=== PATIENT | male | born 1950 | race Caucasian/White ===

== ENCOUNTER 2017-04-26 11:07 | Inpatient (IN) | payer BC, OTHER ==
[2017-04-26 11:31] LABS: Urine Bilirubin 1 mg/dl (NEGATIVE); Urine Blood Negative /ul (NEGATIVE); Urine Ketone Negative (NEGATIVE); Urine Nitrite Negative (NEGATIVE); Urine Protein Negative (NEGATIVE); Urine Specific Gravity 1.025 SP.GR. (1.005-1.030); Urine Urobilinogen Normal (NORMAL)
--- NOTE | 2017-04-26 11:31 | ERNOTE ---
Abdominal HPI - Narrative Date of Service: 04/26/17 - General Chief Complaint: Abdominal Pain Time Seen by Provider: 04/26/17 11:23 Source: patient Exam Limitations: no limitations - Immun/Allergies/Home Medications Immunizatons: IMMUNIZATION HX Immunizations Up to Date Yes History of Influenza Vaccine Yes Hx Pneumococcal Vaccination Yes Allergies/Adverse Reactions: Allergies No Known Allergies Allergy (Verified 04/26/17 11:20) Home Medications: HOME MEDICATIONS Amlodipine Besylate 10 mg PO DAILY 07/13/13 [Last Taken Unknown] Hydrochlorothiazide 12.5 mg PO DAILY 07/13/13 [Last Taken Unknown] Simvastatin [Zocor] 20 mg PO HS 07/13/13 [Last Taken Unknown] hydrALAZINE HCL [Apresoline] 10 mg PO TID 07/13/13 [Last Taken Unknown] Metoprolol Succinate 25 mg PO DAILY 04/26/17 [Last Taken Unknown] - History of Present Illness Narrative: Patient presents to the ED with diffuse abdominal pain for 4 days. This has been gradually worsening. Had diarrhea initially, now resoved. nausea, hasn't been eating. Pain has gradually been worsening. [place] feverish today. Never had anything like thi sbefore. has not seen anyone else for this. Right now he doesn't want anything for pain. No CP or SOB. Pain does not locaize. Timing: constant, getting worse Quality: moderate Activities at Onset: none Modifying Factors - (Improves): Present: other - nothing Modifying Factors - (Worsens): Present: movement Associated Symptoms: Present: nausea, loss of appetite. Absent: headache, diarrhea-gross blood, vomiting, shortness of breath Prior Abdominal Problems: Absent: similar symptoms Prior Treatment: Absent: recently seen Review of Systems - Review of Systems Constitutional: Absent: fever Respiratory: Absent: shortness of breath Cardiology: Absent: chest pain Gastrointestinal/Abdominal: Present: See HPI Genitourinary: Absent: dysuria Skin: Absent: rash Neurological: Absent: weakness All Other Systems: All systems neg except as marked - Patient's Past Medical History Patient History - Medical: No pertinent hx Patient History - Cardiac/Respiratory: Hypertension, Hyperlipidemia Patient History - Cancer: Prostate Patient History - Surgical Procedures: Other Patient History - Other: None - Social History Living Situations: home Psych History: No pertinent hx Smoking Status: Never smoker Alcohol Use: none Drug Use: none - Immunizations Immunizations Up to Date: Yes Hx Pneumococcal Vaccination: Yes History of Influenza Vaccine: Yes Physical Exam - Physical Exam General Appearance: Present: alert, no apparent distress Head Exam: Present: normal inspection, no evidence of injury Eye Exam: Normal inspection: bilateral, PERRL: bilateral Ears, Nose, Throat: Present: normal ENT inspection Neck: Present: normal inspection Respiratory: Present: no respiratory distress, normal breath sounds, no accessory muscle use, lungs clear Cardiovascular/Chest: Present: regular rate, rhythm, normal peripheral pulses Gastrointestinal/Abdominal: Present: soft, tenderness, distended, other - Milf hypertympany. No masses. Diffuse tenderness. Absent: guarding, rebound Back Exam: Absent: CVA tenderness (R), CVA tenderness (L) Extremity Exam: Present: normal inspection Neurological Exam: Present: alert, normal mood/affect, no motor/sensory deficits Skin Exam: Present: normal color, warm/dry ED Progress - Results and Orders Patient's Lab Results:: I have reviewed the patient's lab results. - Vital Signs Patient's Vital Signs:: I have reviewed the patient's vital signs. Vital Signs: Vital Signs 04/26/17 04/26/17 11:11 11:23 Temperature 36.7 C 36.7 C Pulse Rate 71 71 Respiratory 16 16 Rate Blood Pressure 164/81 164/81 O2 Sat by Pulse 96 96 Oximetry - X-Ray X-Ray #1 X-Ray: abdomen Interpretation: Interp. by me X-ray Comments: I reviewed official radiology report - CT/Ultrasound CT/Ultrasound Narrative: I reviewed official radiology report - Progress/Reassessment Chief Complaint: Abdominal Pain Progress Note-Subjective: 04/26/17 17:00 NG placed. Pt felt improved with this. I discussed case with Dr Rubio who will consult, then Dr Kumari who will admit. Pt stable for transfer to floor. Pt agreeable. Departure Clinical Impression: Abdominal pain, SBO (small bowel obstruction) - Departure Disposition: [facility] Condition: Fair
[2017-04-26 11:39] LABS: Urine Appearance Clear; Urine Bacteria None Seen; Urine Color Yellow; Urine RBC None Seen /hpf (0-5); Urine WBC None Seen /hpf (0-5)
[2017-04-26 11:41] LABS: Hematocrit 47.8 % (42.0-52.0); Hemoglobin 16.7 gm/dL (13.5-18.0); Mean Cell Volume 85.7 fl (78-100); Mean Corpuscular Hemoglobin 29.9 pg (27-31); Mean Corpuscular Hgb Conc 34.9 g/dl (32-36); Mean Platelet Volume 10.1 fl (6.0-9.5); Neutrophil # 13.3 K/mm3 (1.3-6.0); Neutrophil % 81.1 % (42-75.0); Platelet Count 295 K/mm3 (150-450); Red Blood Count 5.58 M/mm3 (4.7-6.0); Red Cell Distribution Width 13.8 % (11.5-14.0); White Blood Count 16.4 K/mm3 (4.0-10.5)
[2017-04-26 11:53] LABS: Albumin * 3.8 gm/dl (3.4-5.0); Anion Gap 13.7 mmol/L (6.8-13.8); BUN/Creatinine Ratio 13.3 (9.0-21.6); Ca. Corrected For Albumin 9.9 mg/dL (8.4-10.2); Calcium * 10.1 mg/dL (7.9-10.9); Carbon Dioxide 30.8 mmol/L (24-32.6); Potassium 3.5 mmol/L (3.4-4.6); Total Protein 7.7 gm/dL (6.2-8.2)
[2017-04-26] MEDS ORDERED: DIATRIZOATE MEGLUMINE, SODIUM 30 ML BTL PO ONE (12:01)
[2017-04-26] MEDS ORDERED: DIATRIZOATE MEGLUMINE, SODIUM 30 ML BTL ONE (12:33)
[2017-04-26] MEDS ORDERED: MORPHINE SULFATE 2 MG/ML DISP.SYRIN ONE ×2 (14:21→16:39)
[2017-04-26] MEDS ORDERED: ONDANSETRON HCL/PF 2 MG/ML VIAL ONE (14:21)
[2017-04-26] MEDS ORDERED: ONDANSETRON HCL/PF 2 MG/ML VIAL IV ONE (14:23)
[2017-04-26] MEDS: MORPHINE SULFATE 2 MG/ML DISP.SYRIN IV PRN ×2 (14:43→16:42)
--- NOTE | 2017-04-26 22:19 | HP ---
Chief Complaint - Chief Complaint Date of Service: 04/26/17 Time of Service: 21:47 Chief Complaint: " Stomach Cramps, Diarrhea". Source of HPI- Pt; reliable, ERP report/notes. History of Present Illness: Mr. Adame is a 66-yr-old WM pt with a PMH of: HTN, Osteoathritis & Prostate cancer. Pt states that on Sunday (04/23), he developed severe abdominal cramping and diarrhea. He thought that he was coming down with a "stomach flu." He took OTC Immodium which improved his diarrhea but the abdominal pain persisted. Today, he went to work but his abdominal pain felt worse, full of gas and therefore chose to come to the [facility] ER. He states that he has had poor appetite. The last good meal was yesterday during breakfast and he felt the food just 'stuck in the stomach.' He denies fevers and vomiting. He has had chills and nausea. He had a normal BM this morning. He had Laporascopic prostactectomy in 2009. He denies other abdominal surgeries. He had Colonoscopy 5 yrs ago and states the has polyps were removed and he is due for another screening this yr. Work-up at the ED involved CT abdomen which showed a likely high grade Small Bowel Obstruction. Laboratory studies showed WBC of 16, 000 with a LT shift. The Surgeon was consulted on pt's case by the ERP and he evaluated the pt. He will be admitted inpatient due to the risk of SBO progression to strangulation and will need close monitoring during the non- operative management. - Patient's Past Medical History Patient History - Medical: No pertinent hx, Osteoarthritis Patient History - Cardiac/Respiratory: Hypertension, Hyperlipidemia Patient History - Cancer: Prostate Patient History - Surgical Procedures: Other - Prostatectomy.2009 Patient History - Other: None - Family History Mother Family History - Medical: , Diabetes Type 2 Family History - Cardiac/Respiratory: Hypertension Family History - Cancer: Lung Father Family History - Cardiac/Respiratory: Hypertension Family History - Cancer: Lung, Throat - Social History Living Situations: spouse Psych History: No pertinent hx Smoking Status: Never smoker Have you smoked in the past 12 months: No Alcohol Use: none Drug Use: none - Immunizations Immunizations Up to Date: Yes Hx Pneumococcal Vaccination: Yes History of Influenza Vaccine: Yes Review Of Systems (GEN) - Review of Systems Generalized/Overall Review: Present: Malaise. Absent: Weakness, Chills, Fever EENTM: Absent: Eye Pain, Blurred Vision Respiratory: Absent: Cough, Shortness of Breath, Orthopnea Cardiac: Absent: Chest Pain, Edema, Palpitations Abdominal: Present: Nausea, Constipation Genitourinary: Absent: Burning, Itching, Urgency, Frequency Musculoskeletal: Absent: Joint Pain, Back Pain, Joint Swelling Neurological: Absent: Headache, Anxiety, Depressed, Emotional Problems, Weakness Skin: Absent: Dryness, Lesions, Lumps Endocrine: Absent: Intolerance to Cold, Increased Hunger, Flushing, Increased Thirst Misc: All systems neg except as marked Immunizations: IMMUNIZATION HX Immunizations Up to Date Yes History of Influenza Vaccine Yes Hx Pneumococcal Vaccination Yes Allergies/Adverse Reactions: Allergies Allergy/AdvReac Type Severity Reaction Status Date / Time No Known Allergies Allergy Verified 04/26/17 17:40 Home Medications: HOME MEDICATIONS Amlodipine Besylate 10 mg PO DAILY 07/13/13 [Last Taken Unknown] Hydrochlorothiazide 25 mg PO DAILY 07/13/13 [Last Taken Unknown] Simvastatin [Zocor] 40 mg PO HS 07/13/13 [Last Taken Unknown] hydrALAZINE HCL [Apresoline] 25 mg PO TID 07/13/13 [Last Taken Unknown] Metoprolol Succinate 100 mg PO DAILY 04/26/17 [Last Taken Unknown] Exam - Exam Vital Signs: Vital Signs - Last Taken Temp 36.6 C 04/26/17 17:06 Pulse 66 04/26/17 17:06 Resp 20 04/26/17 17:06 BP 187/87 04/26/17 17:06 Pulse Ox 95 04/26/17 17:06 Constitutional: Present: Alert, Oriented x3, Cooperative, No distress ENT Exam: Present: normal ENT inspection Eye Exam: bilateral eye: normal inspection, PERRL Neck: Present: non-tender, full range of motion, supple Back Exam: Present: normal inspection, no CVA tenderness Breasts: Present: Exam deferred Respiratory: Present: normal breath sounds, No rales, No wheezing Cardiovascular/Chest: Present: normal peripheral pulses, regular rate, rhythm, no chest tenderness, no edema Abdomen: Present: no rebound tenderness, tender - all over, firm, distended /Rectal: Present: Exam deferred Extremity: Present: normal range of motion, non-tender, normal inspection, no pedal edema Skin Exam: Present: warm/dry, no cyanosis Lymphatic: Present: no adenopathy Neurologic: Present: alert, normal mood/affect, oriented x 3 Appearance: Present: appropriate appearance, appropriate insight Eye contact: Present: cooperative, good eye contact, normal speech Thoughts: Present: normal thought pattern, no apparent hallucination Diagnostic Studies: Abnormal Lab Results 04/26/17 Range/Units Unknown Urine Bilirubin 1 H (NEGATIVE) mg/dl Laboratory Results WBC 16.4 K/mm3 (4.0-10.5) H 04/26/17 11:39 RBC 5.58 M/mm3 (4.7-6.0) 04/26/17 11:39 Hgb 16.7 gm/dL (13.5-18.0) 04/26/17 11:39 Hct 47.8 % (42.0-52.0) 04/26/17 11:39 MCV 85.7 fl (78-100) 04/26/17 11:39 MCH 29.9 pg (27-31) 04/26/17 11:39 MCHC 34.9 g/dl (32-36) 04/26/17 11:39 RDW 13.8 % (11.5-14.0) 04/26/17 11:39 Plt Count 295 K/mm3 (150-450) 04/26/17 11:39 MPV 10.1 fl (6.0-9.5) H 04/26/17 11:39 Immature Gran % (Auto) 0.60 % (0.001-0.429) H 04/26/17 11:39 Immature Gran # (Auto) 0.09 K/mm3 (0.000-0.0310) H 04/26/17 11:39 Neutrophils % 81.1 % (42-75.0) H 04/26/17 11:39 Lymphocytes % 10.9 % (20-51) L 04/26/17 11:39 Monocytes % 5.7 % (0.0-9) 04/26/17 11:39 Eosinophils % 1.3 % (0.0-3.0) 04/26/17 11:39 Basophils % 0.4 % (0.0-1.0) 04/26/17 11:39 Nucleated RBC % 0.0 k/mm3 (0-1) 04/26/17 11:39 Neutrophils # 13.3 K/mm3 (1.3-6.0) H 04/26/17 11:39 Lymphocytes # 1.8 k/mm3 (1.5-3.5) 04/26/17 11:39 Monocytes # 0.9 k/mm3 (0.0-1.0) 04/26/17 11:39 Eosinophils # 0.2 k/mm3 (0.0-0.7) 04/26/17 11:39 Absolute Basophils 0.1 k/mm3 (0.0-0.1) 04/26/17 11:39 Sodium 137 mmol/L (132-142) 04/26/17 11:39 Plasma Sodium 138 mmol/L (130-142) 04/26/17 11:39 Potassium 3.5 mmol/L (3.4-4.6) 04/26/17 11:39 Chloride 96 mmol/L (97-106) L 04/26/17 11:39 Carbon Dioxide 30.8 mmol/L (24-32.6) 04/26/17 11:39 Anion Gap 13.7 mmol/L (6.8-13.8) 04/26/17 11:39 BUN 16 mg/dL (6-23) 04/26/17 11:39 Creatinine 1.20 mg/dL (0.4-1.4) 04/26/17 11:39 Est GFR (Non-Af Amer) 65 mL/min (60-130) 04/26/17 11:39 BUN/Creatinine Ratio 13.3 (9.0-21.6) 04/26/17 11:39 Random Glucose 148 mg/dL (70-110) H 04/26/17 11:39 Calcium 10.1 mg/dL (7.9-10.9) 04/26/17 11:39 Calcium Adj for Albumin 9.9 mg/dL (8.4-10.2) 04/26/17 11:39 Total Bilirubin 1.0 mg/dL (0.0-1.1) 04/26/17 11:39 AST 23 U/L (0-48) 04/26/17 11:39 ALT 38 U/L (19-67) 04/26/17 11:39 Alkaline Phosphatase 66 U/L (50-170) 04/26/17 11:39 Total Protein 7.7 gm/dL (6.2-8.2) 04/26/17 11:39 Albumin 3.8 gm/dl (3.4-5.0) 04/26/17 11:39 Amylase 30 U/L (25-115) 04/26/17 11:39 Lipase 170 U/L (73-393) 04/26/17 11:39 Urine Color Yellow 04/26/17 Unknown Urine Appearance Clear 04/26/17 Unknown Urine pH 6.0 pH (5.0-7.0) 04/26/17 Unknown Ur Specific [place] 1.025 SP.GR. (1.005-1.030) 04/26/17 Unknown Urine Protein Negative mg/dL (NEGATIVE) 04/26/17 Unknown Urine Glucose (UA) Negative mg/dL (NEGATIVE) 04/26/17 Unknown Urine Ketones Negative mg/dL (NEGATIVE) 04/26/17 Unknown Urine Blood Negative /ul (NEGATIVE) 04/26/17 Unknown Urine Nitrate Negative (NEGATIVE) 04/26/17 Unknown Urine Bilirubin 1 mg/dl (NEGATIVE) H 04/26/17 Unknown Urine Ictotest Negative (NEGATIVE) 04/26/17 Unknown Urine Urobilinogen Normal EU/dl (NORMAL) 04/26/17 Unknown Ur Leukocyte Esterase Negative /ul (NEGATIVE) 04/26/17 Unknown Urine RBC None seen /hpf (0-5) 04/26/17 Unknown Urine WBC None seen /hpf (0-5) 04/26/17 Unknown Ur Epithelial Cells 0-5 /hpf (0-5) 04/26/17 Unknown Urine Bacteria None seen (NONE) 04/26/17 Unknown Urine Culture Comments No culture indicated 04/26/17 Unknown Assessment/Plan - Assessment/Plan (1) SBO (small bowel obstruction) Assessment: Pt is a 66 yr male with SBO who presented with abdominal pain, abdominal distention, nausea and minimal passage of stool. He has had decreased intake of food and no appetite. On exam, he has generalized tenderness but states its better than this morning. He has no fevers, tachycardia, tachypnea, hypotension and severe rebound tenderness. He has been seen and evaluated by Surgery. The management will be non-operative for now with : NG to LIS, NPO, IVF hydration, provide Antiemetics and Analgesics. He will have repeat Abdominal X-ray in am to evaluate for resolution. Will monitor for signs of clinical deterioration- fevers, Leukocytosis, continuous abd pain & tachycardia. CBC & BMP in am. Problem: Acute (2) Leukocytosis Assessment: CXR did not have any acute findings. No infection on UA. Problem: Acute (3) HTN (hypertension) Assessment: Stable- Continue Amlodipine, hctz, metoprolol, Apresoline. Problem: Chronic Qualifiers: Hypertension type: essential hypertension Qualified Code(s): I10 - Essential (primary) hypertension
[2017-04-26] MEDS ORDERED: HYDROmorphone HCL 1 MG/ML DISP.SYRIN IV PRN (22:21)
[2017-04-26] MEDS ORDERED: ONDANSETRON HCL/PF 2 MG/ML VIAL IV PRN (22:21)
[2017-04-26] MEDS: POTASSIUM CHLORIDE 20 MEQ in DEXTROSE 5%-0.5 NORMAL SALINE 990 ML IV SCH (23:12)
--- NOTE | 2017-04-27 05:56 | PN ---
Subjective - Date and Time Seen Date: 04/27/17 Time: 05:51 Subjective Narrative: Pt seen this am. He reports having abdominal cramping in the night and Zofran provided relief. No N/V. Noted to have tenderness on RUQ. Had NG output of about 1100ml. No other acute event overnight. Objective - Vitals Vitals: Last Vital Signs Temp 36.9 C 04/27/17 02:31 Pulse 73 04/27/17 02:31 Resp 20 04/27/17 02:31 BP 145/75 04/27/17 02:31 Pulse Ox 95 04/27/17 02:31 - Abnormal Lab Findings Abnormal Lab Findings: Abnormal Lab Results 04/26/17 Range/Units Unknown Urine Bilirubin 1 H (NEGATIVE) mg/dl - Exam Constitutional: Present: Alert, Oriented x3, Cooperative, No distress ENT Exam: Present: normal ENT inspection Neck: Present: non-tender, full range of motion Breasts: Present: Exam deferred Respiratory: Present: chest non-tender, No rales, No wheezing Cardiovascular/Chest: Present: normal peripheral pulses, regular rate, rhythm Abdomen: Present: soft, tender - RLQ, distended /Rectal: Present: Exam deferred Extremity: Present: normal range of motion, non-tender, normal inspection, no pedal edema Skin Exam: Present: warm/dry, no cyanosis Lymphatic: Present: no adenopathy Neurologic: Present: no motor/sensory deficits, alert, normal mood/affect Appearance: Present: appropriate appearance, appropriate insight Eye contact: Present: cooperative, good eye contact, normal speech Thoughts: Present: normal thought pattern, no apparent hallucination Assessment/Plan - Problems/Diagnosis (1) SBO (small bowel obstruction) Problem: Acute Narrative: Pt is a 66 yr male with SBO who presented with abdominal pain, abdominal distention, nausea and minimal passage of stool. He has had decreased intake of food and no appetite. On exam, he has generalized tenderness but states its better than this morning. He has no fevers, tachycardia, tachypnea, hypotension and severe rebound tenderness. He has been seen and evaluated by Surgery. The management will be non-operative for now with : NG to LIS, NPO, IVF hydration, provide Antiemetics and Analgesics. He will have repeat Abdominal X-ray in am to evaluate for resolution. Will monitor for signs of clinical deterioration- fevers, Leukocytosis, continuous abd pain & tachycardia. CBC & BMP in am. 04/27- Abdomen still distended and noted to have tenderness on RUQ. NG output- 1100. Flat/upright X-ray pending. (2) Leukocytosis Problem: Acute Narrative: CXR did not have any acute findings. No infection on UA. (3) HTN (hypertension) Problem: Chronic Qualifiers: Hypertension type: essential hypertension Qualified Code(s): I10 - Essential (primary) hypertension Narrative: Stable- Hold Amlodipine, hctz, metoprolol, Apresoline while NPO. Will monitor bp and give IV route if elevated.
[2017-04-27 06:16] LABS: Hemoglobin 15.5 gm/dL (13.5-18.0); Mean Cell Volume 86.7 fl (78-100); Mean Corpuscular Hemoglobin 29.9 pg (27-31); Mean Corpuscular Hgb Conc 34.4 g/dl (32-36); Mean Platelet Volume 10.5 fl (6.0-9.5); Neutrophil # 7.3 K/mm3 (1.3-6.0); Neutrophil % 75.3 % (42-75.0); Platelet Count 262 K/mm3 (150-450); Red Blood Count 5.19 M/mm3 (4.7-6.0); Red Cell Distribution Width 13.7 % (11.5-14.0); White Blood Count 9.7 K/mm3 (4.0-10.5)
[2017-04-27 06:22] LABS: Anion Gap 7.7 mmol/L (6.8-13.8); BUN/Creatinine Ratio 15.1 (9.0-21.6); Calcium * 9.7 mg/dL (7.9-10.9); Carbon Dioxide 35.7 mmol/L (24-32.6); Estimated Creat Clear 54.6; Potassium 3.4 mmol/L (3.4-4.6)
[2017-04-27] MEDS ORDERED: HYDROmorphone HCL 2 MG/ML VIAL IV PRN (06:32)
[2017-04-27] MEDS ORDERED: hydrALAZINE HCL 10 MG TABLET PO SCH (09:00)
[2017-04-27] MEDS ORDERED: amLODIPine BESYLATE 10 MG TABLET PO SCH (09:00)
[2017-04-27] MEDS ORDERED: HYDROCHLOROTHIAZIDE 25 MG TABLET PO SCH (09:00)
[2017-04-27] MEDS ORDERED: hydrALAZINE HCL 25 MG TABLET PO SCH (09:00)
[2017-04-27] MEDS ORDERED: METOPROLOL SUCCINATE 100 MG TABLET.SA PO SCH (09:00)
--- NOTE | 2017-04-27 09:09 | PN ---
Progess Note - Interim Narrative: 04/27/17 09:06 I saw and examined this patient on 04/27/2017. I agree with the narrative and plan of SIMBA Rosales. Continue with NPO, IVF and NGT for SBO. Dr. pittman is on the case. Patient is medically cleared for surgery in case he does not open up pending EKG. 04/27/17 11:18 ADDENDUM: EKG shows NSR with probable right IV conduction delay.
[2017-04-27] MEDS ORDERED: MORPHINE SULFATE 4 MG/ML SYRG IV PRN (09:17)
[2017-04-27] MEDS: POTASSIUM CHLORIDE 20 MEQ in DEXTROSE 5%-0.5 NORMAL SALINE 990 ML IV SCH ×2 (09:29→15:05)
[2017-04-27] MEDS ORDERED: PROMETHAZINE HCL 12.5 MG in DEXTROSE 5 % IN WATER 50 ML IV PRN ×2 (14:21)
[2017-04-27] MEDS ORDERED: ONDANSETRON HCL/PF 2 MG/ML VIAL IV PRN (14:21)
[2017-04-27] MEDS ORDERED: KETOROLAC TROMETHAMINE 15 MG/ML VIAL IV PRN (14:21)
[2017-04-27] MEDS ORDERED: diphenhydrAMINE HCL 50 MG/ML VIAL IV PRN (14:21)
[2017-04-27] MEDS ORDERED: NALOXONE HCL 1 MG/1 ML SYRG IV PRN (14:21)
[2017-04-27] MEDS ORDERED: MORPHINE SULFATE 2 MG/ML DISP.SYRIN IV PRN (14:24)
--- NOTE | 2017-04-27 14:52 | PN ---
Subjective - Date and Time Seen Date: 04/27/17 Time: 14:43 Subjective Narrative: Patient has been treated for SBO with NG suctiona dn IVF's. He is more comfortable and abdomen less tense, however there has been a large amount of NG output, which is still green in nature. He has contrast in the colon however the small bowel is still dilated and he has only passed a minimal amount of flattus. Objective - Review of Systems Generalized/Overall Review: Reports: Fatigue. Denies: Chills, Fever EENTM: Reports: Other - NG uncomfortable, mouth dry Respiratory: Reports: No Symptoms Reported Cardiac: Reports: No Symptoms Reported Abdominal: Reports: Other - less distention but still some, tender upper abdomen Genitourinary Symptoms: Reports: No Symptoms Reported, Other - voided small amount Musculoskeletal Complaints: Reports: No Symptoms Reported Neurological: Reports: No Symptoms Reported Skin: Reports: No Symptoms Reported Misc: All systems neg except as marked - Vitals Vitals: Last Vital Signs Temp 36.6 C 04/27/17 14:19 Pulse 90 04/27/17 14:19 Resp 16 04/27/17 14:19 BP 160/75 04/27/17 14:19 Pulse Ox 94 04/27/17 14:19 - Abnormal Lab Findings Abnormal Lab Findings: Abnormal Lab Results 04/27/17 04/27/17 Range/Units 06:11 06:11 MPV 10.5 H (6.0-9.5) fl Neutrophils % 75.3 H (42-75.0) % Lymphocytes % 14.0 L (20-51) % Neutrophils # 7.3 H (1.3-6.0) K/mm3 Lymphocytes # 1.4 L (1.5-3.5) k/mm3 Carbon Dioxide 35.7 H (24-32.6) mmol/L Random Glucose 178 H (70-110) mg/dL - EKG/Xray Findings EKG: NSR XRAY: abdomen Interpretation: Reviewed by me - Exam Constitutional: Present: Alert, Oriented x3, Cooperative, Well nourished, Mild distress ENT Exam: Present: normal ENT inspection, other - NG Neck: Present: normal inspection Respiratory: Present: lungs clear, normal breath sounds Cardiovascular/Chest: Present: regular rate, rhythm Abdomen: Present: other - distended, assymetrically, no BS 2 minutes. tender epigastrium but no percussion or rebound tenderness or guarding. No hernias /Rectal: Present: Exam deferred Extremity: Present: normal range of motion, no pedal edema, no calf tenderness Skin Exam: Present: normal color, warm/dry Neurologic: Present: yarn examiner II-XII nml as tested, normal cerebellar test, no motor/ sensory deficits Appearance: Present: appropriate appearance, appropriate insight Eye contact: Present: cooperative, good eye contact Thoughts: Present: normal thought pattern Assessment/Plan - Problems/Diagnosis (1) SBO (small bowel obstruction) Problem: Acute Narrative: The high grade obstruction persists despite trial of NG suction. Most likely etiology is adhesions from the RALP. Discussed exploratory laparotomy--risks/ benefits/possible complications and expected post-op course. Questions answered and informed consent obtained.
[2017-04-27] MEDS ORDERED: ceFAZolin SODIUM 1 GM VIAL IV ONE (15:40)
[2017-04-27] MEDS ORDERED: RINGER'S SOLUTION,LACTATED 1,000 ML IV ONE ×3 (16:00→16:02)
[2017-04-27] MEDS: RINGER'S SOLUTION,LACTATED 1,000 ML IV ONE (18:00)
[2017-04-27] MEDS ORDERED: HYDROmorphone HCL IN 0.9% NACL 50 ML CARTRIDGE IV PRN (18:23)
[2017-04-27] MEDS: RINGER'S SOLUTION,LACTATED 1,000 ML IV PRN (18:57)
--- NOTE | 2017-04-27 19:57 | OR ---
Operative Report - Dictated Report Narrative: OPERATIVE REPORT DATE OF OPERATION: 04/27/2017 PREOPERATIVE DIAGNOSIS: Small bowel obstruction POSTOPERATIVE DIAGNOSIS: Small bowel obstruction from stricture (pathology pending). Umbilical nodule (pathology pending) OPERATION: Exploratory laparotomy with small bowel resection and excision of umbilicus ANESTHESIA: Bairoil scope-assisted Gen. endotracheal/epidural Lopez العلي CRNA INDICATIONS FOR PROCEDURE: The patient is a 66-year-old male with a several day history of abdominal distention and CT scan evidence of small bowel obstruction. He has failed to resolve with nasogastric intubation. In retrospect he has had multiple episodes of abdominal distention over the last year. He has a history of RALP. FINDINGS: Small bowel obstruction from benign appearing stricture. 1 cm umbilical nodule. NARRATIVE OF PROCEDURE: The patient was identified preoperatively and prior to the administration of anesthetic a multidisciplinary timeout was observed. SCDs were applied and 2 g of intravenous Ancef administered. An epidural catheter was placed. The patient was placed supine and glide scope-assisted endotracheal intubation performed. General anesthesia was administered. A Hauser catheter was placed. The patient's abdomen was prepped with Betadine solution and the midline isolated with 4 sterile towels. The remainder the patient was covered with a sterile disposable drape. A midline incision was outlined with a marking pen skirting to the right of the umbilicus. The midportion of the incision was made sharply and dissection carried through subcutaneous tissue until the fascia of the linea alba below the umbilicus was identified. This was incised. The peritoneum was then elevated and incised to allow entry into the abdomen under direct vision. There was a gush of clear yellow peritoneal fluid which was suctioned. Digital exploration of the undersurface of the anterior abdominal wall revealed a 1 cm very firm nodule under the umbilicus itself. The fascial incision was then extended superiorly and inferiorly to provide adequate exposure for exploration. The undersurface of the umbilicus revealed a 1 cm firm nodule. Although this appeared to be infarcted fat other pathology could not be ruled out and decision was made to simply excise the umbilicus which was done. Manual exploration of the abdomen revealed tethering of the small intestine in the left lower quadrant. The Hauser bulb was palpated in the bladder. The nasogastric tube was confirmed in the stomach. The liver was smooth to palpation. The small bowel was traced proximally to the ligament of Treitz, and then distally to the tethered area in the left lower quadrant. A Bookwalter self retraining retractor was placed and the area directly visualized. There was a strictured area with retraction of the mesentery. The bowel distal to this was collapsed. The cecum was located. The appendix appeared normal. The ileocecal valve was identified and the bowel traced proximally back to the area of stricture confirming that this was the site of obstruction. The foreshortened mesentery was gradually developed under direct vision and appeared to be benign scar. Despite this maneuver the stricture persisted, small bowel content could not be readily stripped through the area, and the decision was made to resect the area. Points were chosen proximal and distal to the stricture and the small bowel divided with a PARKER stapling device. The mesentery was developed with a LigaSure device and appeared hemostatic. The small bowel was placed in a [id number] fashion and secured with several serosal sutures of 3-0 GI silk. Enterotomies were made in the antimesenteric ends of the staple lines and a functioning side to side anastomosis created with a PARKER stapler. The anterior the anastomosis was inspected and found to be hemostatic and of good caliber. The common enterotomy was then closed with a TA 60 stapling device. Stapled bowel ends were treated with Betadine. The mesenteric defect was judged too small to allow formation of internal hernia and did not require closure. Small bowel content freely flowed through the anastomosis, and indeed the patient passed gas and had a bowel movement almost immediately. Gloves were changed and previously used instruments passed from the field. The abdomen was irrigated with saline and inspected for hemostasis which appeared complete. The omentum and small intestine were arranged in an anatomic position. A sponge needle and instrument count was then performed. At this juncture it was noted that one hemostat recorded in the original count could not be accounted for. There was in fact only one hemostat used during the case and this instrument was clearly accounted for. The abdomen was again manually explored and no retained instrument was evident. It was elected to proceed with abdominal closure and then obtain an x-ray. The fascia and peritoneum were closed with a single layer of interrupted #1 Vicryl sutures. The skin was approximated with tc. The operative site was washed and dried. A dressing of folded 4 x 4's and Medipore tape was applied. An abdominal x-ray was obtained which confirmed that the hemostat was not present. The patient tolerated the anesthetic and procedure well without complication. There was no measurable blood loss. The umbilicus and small bowel segment were submitted to pathology. The patient was transferred to the recovery room awake , extubated, and in stable condition. Reviewed and electronically signed ]
[2017-04-27] MEDS: SIMVASTATIN 40 MG TABLET PO SCH (21:27)
[2017-04-28] MEDS ORDERED: HYDROmorphone HCL 2 MG/ML VIAL ONE ×2 (04:14→06:57)
[2017-04-28] MEDS: HYDROmorphone HCL 1 MG/ML DISP.SYRIN IV PRN ×2 (04:20→07:03)
--- NOTE | 2017-04-28 05:32 | PN ---
Subjective - Date and Time Seen Date: 04/28/17 Time: 05:31 Subjective Narrative: Pt seen this am. POD # 1 for Exp. Lap with small bowel resection. Pain is well controlled with IVP. Nursing reported irregular HR but did not sustain it. No acute events overnight. Objective - Vitals Vitals: Last Vital Signs Temp 36.7 C 04/27/17 18:50 Pulse 93 04/28/17 04:35 Resp 18 04/28/17 04:35 BP 147/73 04/28/17 04:35 Pulse Ox 97 04/28/17 04:35 - Abnormal Lab Findings Abnormal Lab Findings: Abnormal Lab Results 04/27/17 04/27/17 Range/Units 06:11 06:11 MPV 10.5 H (6.0-9.5) fl Neutrophils % 75.3 H (42-75.0) % Lymphocytes % 14.0 L (20-51) % Neutrophils # 7.3 H (1.3-6.0) K/mm3 Lymphocytes # 1.4 L (1.5-3.5) k/mm3 Carbon Dioxide 35.7 H (24-32.6) mmol/L Random Glucose 178 H (70-110) mg/dL - Exam Constitutional: Present: Alert, Oriented x3, Cooperative, No distress ENT Exam: Present: normal ENT inspection Neck: Present: non-tender, full range of motion, supple Breasts: Present: Exam deferred Respiratory: Present: No rales, No wheezing Cardiovascular/Chest: Present: normal peripheral pulses, regular rate, rhythm, no chest tenderness Abdomen: Present: soft, nontender /Rectal: Present: Exam deferred Extremity: Present: normal range of motion, non-tender, normal inspection Skin Exam: Present: warm/dry Lymphatic: Present: no adenopathy Neurologic: Present: no motor/sensory deficits, alert, oriented x 3 Appearance: Present: appropriate appearance, appropriate insight Eye contact: Present: cooperative, good eye contact, normal speech Thoughts: Present: normal thought pattern, no apparent hallucination Cauti Physician Documentation - Urinary Catheter Management Urethral (Hauser) Date of Insertion: 04/27/17 Assessment/Plan - Problems/Diagnosis (1) SBO (small bowel obstruction) Problem: Acute Narrative: Pt is a 66 yr male with SBO who presented with abdominal pain, abdominal distention, nausea and minimal passage of stool. He has had decreased intake of food and no appetite. On exam, he has generalized tenderness but states its better than this morning. He has no fevers, tachycardia, tachypnea, hypotension and severe rebound tenderness. He has been seen and evaluated by Surgery. The management will be non-operative for now with : NG to LIS, NPO, IVF hydration, provide Antiemetics and Analgesics. He will have repeat Abdominal X-ray in am to evaluate for resolution. Will monitor for signs of clinical deterioration- fevers, 04/26- Abdomen still distended and noted to have tenderness on RUQ. NG output- 1100. Flat/upright X-ray pending. 04/27 -POD # 1 for Exp. Lap with small bowel resection. (2) HTN (hypertension) Problem: Chronic Qualifiers: Hypertension type: essential hypertension Qualified Code(s): I10 - Essential (primary) hypertension Narrative: Stable- Hold Amlodipine, hctz, metoprolol, Apresoline while NPO. Will monitor bp and give IV route if elevated. (3) Leukocytosis Problem: Acute
[2017-04-28 05:55] LABS: Hemoglobin 13.7 gm/dL (13.5-18.0); Mean Cell Volume 87.5 fl (78-100); Mean Corpuscular Hgb Conc 34.3 g/dl (32-36); Mean Platelet Volume 10.3 fl (6.0-9.5); Neutrophil # 10.6 K/mm3 (1.3-6.0); Neutrophil % 84.9 % (42-75.0); Platelet Count 238 K/mm3 (150-450); Red Blood Count 4.57 M/mm3 (4.7-6.0); Red Cell Distribution Width 13.8 % (11.5-14.0); White Blood Count 12.5 K/mm3 (4.0-10.5)
[2017-04-28 06:07] LABS: Anion Gap 9.1 mmol/L (6.8-13.8); BUN/Creatinine Ratio 14.8 (9.0-21.6); Carbon Dioxide 32.6 mmol/L (24-32.6); Estimated Creat Clear 53.8; Potassium 3.7 mmol/L (3.4-4.6)
[2017-04-28] MEDS: RINGER'S SOLUTION,LACTATED 1,000 ML IV PRN ×2 (09:53→17:39)
[2017-04-28] MEDS: BUPIVACAINE HCL/0.9 % NACL/PF 250 ML EP PRN (11:38)
[2017-04-28] MEDS: HYDROCHLOROTHIAZIDE 25 MG TABLET PO SCH (11:44)
[2017-04-28] MEDS: amLODIPine BESYLATE 10 MG TABLET PO SCH (11:44)
[2017-04-28] MEDS: hydrALAZINE HCL 25 MG TABLET PO SCH ×2 (11:44→20:14)
[2017-04-28] MEDS: METOPROLOL SUCCINATE 100 MG TABLET.SA PO SCH (11:44)
[2017-04-28] MEDS: HYDROmorphone HCL 2 MG/ML VIAL IV PRN ×2 (11:51→15:03)
[2017-04-28] MEDS: POTASSIUM CHLORIDE 20 MEQ in DEXTROSE 5%-0.5 NORMAL SALINE 990 ML IV SCH (12:25)
--- NOTE | 2017-04-28 16:12 | PN ---
Dictated Progress Note - Date and Time Seen: Date: 04/28/17 Time: 16:09 - second visit - Progress Note Narrative: Vital Signs - Last Taken Temp 37.3 C 04/28/17 14:46 Pulse 88 04/28/17 14:46 Resp 16 04/28/17 14:46 BP 158/80 04/28/17 14:46 Pulse Ox 93 04/28/17 14:46 Abnormal/Pending Laboratory Last 24 HRS 04/28/17 04/28/17 05:35 05:35 WBC 12.5 H D RBC 4.57 L Hct 40.0 L MPV 10.3 H Neutrophils % 84.9 H Lymphocytes % 8.6 L Neutrophils # 10.6 H Lymphocytes # 1.1 L Random Glucose 190 H POD #1 Exploratory laparotomy with small bowel resection for releif of SBO VS normal, pain controlled. Tolerated NG clamping with no residual. Has not voided except small amounts since worthy out. Did sit up. Dressing dry. No bowel activity. Will trial clear liquids around NG. Add Pantoprozole. Bladder scan.
[2017-04-28] MEDS: PANTOPRAZOLE SODIUM 40 MG in NORMAL SALINE 100 ML IV SCH (17:19)
[2017-04-28] MEDS: SIMVASTATIN 40 MG TABLET PO SCH (20:14)
[2017-04-29] MEDS: HYDROmorphone HCL 2 MG/ML VIAL IV PRN (00:31)
[2017-04-29] MEDS: hydrALAZINE HCL 25 MG TABLET PO SCH ×3 (01:37→18:33)
[2017-04-29] MEDS: RINGER'S SOLUTION,LACTATED 1,000 ML IV PRN ×3 (01:37→15:50)
[2017-04-29] MEDS: BUPIVACAINE HCL/0.9 % NACL/PF 250 ML EP PRN (02:34)
--- NOTE | 2017-04-29 05:25 | PN ---
Subjective - Date and Time Seen Date: 04/29/17 Time: 06:39 Subjective Narrative: Pt examined this am. Had difficulty with urination and required to be straight cath once in the night. Reports the he was able to void this am without more urge. Is very eager to ambulate in the halls. Wants to try PO narcotics- IV dilaudid has been causing him hallucinations. No other acute events. Objective - Vitals Vitals: Last Vital Signs Temp 36.5 C 04/29/17 02:13 Pulse 65 04/29/17 02:13 Resp 18 04/29/17 02:13 BP 179/69 04/29/17 02:13 Pulse Ox 93 04/29/17 02:13 - Abnormal Lab Findings Abnormal Lab Findings: Abnormal Lab Results 04/28/17 04/28/17 Range/Units 05:35 05:35 WBC 12.5 H D (4.0-10.5) K/mm3 RBC 4.57 L (4.7-6.0) M/mm3 Hct 40.0 L (42.0-52.0) % MPV 10.3 H (6.0-9.5) fl Neutrophils % 84.9 H (42-75.0) % Lymphocytes % 8.6 L (20-51) % Neutrophils # 10.6 H (1.3-6.0) K/mm3 Lymphocytes # 1.1 L (1.5-3.5) k/mm3 Random Glucose 190 H (70-110) mg/dL - Exam Constitutional: Present: Alert, Oriented x3, Cooperative, No distress ENT Exam: Present: normal ENT inspection, hearing grossly normal Neck: Present: non-tender, full range of motion, supple Breasts: Present: Exam deferred Respiratory: Present: lungs clear, no accessory muscle use Cardiovascular/Chest: Present: normal peripheral pulses, regular rate, rhythm, no chest tenderness Abdomen: Present: soft, nontender, distended /Rectal: Present: Exam deferred Extremity: Present: normal range of motion, non-tender, normal inspection Skin Exam: Present: normal color, warm/dry, no cyanosis Lymphatic: Present: no adenopathy Neurologic: Present: no motor/sensory deficits, alert, oriented x 3 Appearance: Present: appropriate appearance, appropriate insight Eye contact: Present: cooperative, good eye contact, normal speech Thoughts: Present: normal thought pattern, no apparent hallucination Cauti Physician Documentation - Urinary Catheter Management Urethral (Hauser) Date of Insertion: 04/27/17 Date of Removal: 04/28/17 Time of Removal: 10:25 Assessment/Plan - Problems/Diagnosis (1) SBO (small bowel obstruction) Problem: Acute Narrative: Pt is a 66 yr male with SBO who presented with abdominal pain, abdominal distention, nausea and minimal passage of stool. SBO was unrelieved with non operative mgt with NG to LIS, NPO, IVF hydration, Antiemetics and Analgesics. He underwent successful Exp. Lap with small bowel resection on 04/27. 04/29 -POD # 2 for Exp. Lap with small bowel resection. Will follow surgery recommendations. (2) HTN (hypertension) Problem: Chronic Qualifiers: Hypertension type: essential hypertension Qualified Code(s): I10 - Essential (primary) hypertension Narrative: Antihypertensive medication started. Amlodipine, hctz, metoprolol, Apresoline. Pain needs to be kept under control. (3) Leukocytosis Problem: Acute
[2017-04-29 06:16] LABS: Hemoglobin 13.9 gm/dL (13.5-18.0); Mean Cell Volume 88.6 fl (78-100); Mean Corpuscular Hgb Conc 33.9 g/dl (32-36); Mean Platelet Volume 10.3 fl (6.0-9.5); Neutrophil % 79.9 % (42-75.0); Platelet Count 256 K/mm3 (150-450); Red Blood Count 4.63 M/mm3 (4.7-6.0); Red Cell Distribution Width 13.8 % (11.5-14.0); White Blood Count 13.8 K/mm3 (4.0-10.5)
[2017-04-29] MEDS: RINGER'S SOLUTION,LACTATED 1,000 ML IV ONE (06:33)
[2017-04-29] MEDS ORDERED: oxyCODONE HCL/ACETAMINOPHEN 1 TAB TABLET PO PRN ×2 (06:44→07:30)
[2017-04-29] MEDS: amLODIPine BESYLATE 10 MG TABLET PO SCH (09:33)
[2017-04-29] MEDS: METOPROLOL SUCCINATE 100 MG TABLET.SA PO SCH (09:33)
--- NOTE | 2017-04-29 10:47 | PN ---
Dictated Progress Note - Date and Time Seen: Date: 04/29/17 Time: 10:43 - Progress Note Narrative: Vital Signs - Last Taken Temp 36.4 C L 04/29/17 06:19 Pulse 64 04/29/17 09:33 Resp 20 04/29/17 06:19 BP 159/85 04/29/17 09:33 Pulse Ox 92 04/29/17 06:19 Abnormal/Pending Laboratory Last 24 HRS 04/29/17 05:50 WBC 13.8 H RBC 4.63 L Hct 41.0 L MPV 10.3 H Immature Gran % (Auto) 0.70 H Immature Gran # (Auto) 0.10 H Neutrophils % 79.9 H Lymphocytes % 9.5 L Monocytes % 9.3 H Neutrophils # 11.0 H Lymphocytes # 1.3 L Monocytes # 1.3 H POD #2 Exploratory laparotomy with small bowel resection to release SBO VS normal. Pain controlled, however became a little disoriented with Dilaudid last night. Did eventually void after one straight cath and now voiding without difficulty. Has been OOB. Dressing dry. Abdomen was tympanitic/distended and so NG reconnected with 1 liter return Will reconnect NG to LIS for now but clamp for ambulation
[2017-04-29] MEDS: HYDROCHLOROTHIAZIDE 25 MG TABLET PO SCH (12:00)
[2017-04-29] MEDS: PANTOPRAZOLE SODIUM 40 MG in NORMAL SALINE 100 ML IV SCH (16:29)
[2017-04-29] MEDS ORDERED: HYDROmorphone HCL IN 0.9% NACL 50 ML CARTRIDGE IV PRN (16:46)
[2017-04-29] MEDS ORDERED: NALOXONE HCL 1 MG/1 ML SYRG IV PRN (16:46)
[2017-04-29] MEDS ORDERED: diphenhydrAMINE HCL 50 MG/ML VIAL IV PRN (16:46)
[2017-04-29] MEDS: SIMVASTATIN 40 MG TABLET PO SCH (20:25)
[2017-04-30] MEDS: RINGER'S SOLUTION,LACTATED 1,000 ML IV PRN ×3 (00:04→16:29)
[2017-04-30] MEDS: hydrALAZINE HCL 25 MG TABLET PO SCH ×3 (01:29→16:28)
--- NOTE | 2017-04-30 05:28 | PN ---
Subjective - Date and Time Seen Date: 04/30/17 Subjective Narrative: Pt seen this am. Has no complaints. Abdomen is non-tender. Has not required prn pain meds. Is tolerating activity very well. No flatus or BMs yet. NG remains clamped. Surgery continues to follow. Objective - Vitals Vitals: Last Vital Signs Temp 37.1 C 04/30/17 02:44 Pulse 68 04/30/17 02:44 Resp 18 04/30/17 02:44 BP 161/72 04/30/17 02:44 Pulse Ox 96 04/30/17 02:44 - Abnormal Lab Findings Abnormal Lab Findings: Abnormal Lab Results 04/29/17 Range/Units 05:50 WBC 13.8 H (4.0-10.5) K/mm3 RBC 4.63 L (4.7-6.0) M/mm3 Hct 41.0 L (42.0-52.0) % MPV 10.3 H (6.0-9.5) fl Immature Gran % (Auto) 0.70 H (0.001-0.429) % Immature Gran # (Auto) 0.10 H (0.000-0.0310) K/mm3 Neutrophils % 79.9 H (42-75.0) % Lymphocytes % 9.5 L (20-51) % Monocytes % 9.3 H (0.0-9) % Neutrophils # 11.0 H (1.3-6.0) K/mm3 Lymphocytes # 1.3 L (1.5-3.5) k/mm3 Monocytes # 1.3 H (0.0-1.0) k/mm3 - Exam Constitutional: Present: Alert, Oriented x3, Cooperative, No distress ENT Exam: Present: normal ENT inspection. Absent: nasal congestion, nasal drainage Neck: Present: non-tender, full range of motion Breasts: Present: Exam deferred Respiratory: Present: no accessory muscle use, No rales, No wheezing Cardiovascular/Chest: Present: normal peripheral pulses, regular rate, rhythm, no chest tenderness Abdomen: Present: soft, nontender, distended. Absent: Normal bowel sounds /Rectal: Present: Exam deferred Extremity: Present: normal range of motion, non-tender, normal inspection Skin Exam: Present: warm/dry, no cyanosis Lymphatic: Present: no adenopathy Neurologic: Present: no motor/sensory deficits, alert, oriented x 3 Appearance: Present: appropriate appearance, appropriate insight Eye contact: Present: cooperative, good eye contact, normal speech Thoughts: Present: normal thought pattern, no apparent hallucination Cauti Physician Documentation - Urinary Catheter Management Urethral (Hauser) Date of Insertion: 04/27/17 Date of Removal: 04/28/17 Time of Removal: 10:25 Assessment/Plan - Problems/Diagnosis (1) SBO (small bowel obstruction) Problem: Acute Narrative: Pt is a 66 yr male with SBO who presented with abdominal pain, abdominal distention, nausea and minimal passage of stool. SBO was unrelieved with non operative mgt with NG to LIS, NPO, IVF hydration, Antiemetics and Analgesics. He underwent successful Exp. Lap with small bowel resection on 04/27. 04/29 -POD # 3 for Exp. Lap with small bowel resection to release the SBO. Will follow surgery recommendations. (2) HTN (hypertension) Problem: Chronic Qualifiers: Hypertension type: essential hypertension Qualified Code(s): I10 - Essential (primary) hypertension Narrative: Antihypertensive medication started. Amlodipine, hctz, metoprolol, Apresoline. Pain needs to be kept under control. (3) Leukocytosis Problem: Acute
[2017-04-30 06:13] LABS: Hematocrit 42.1 % (42.0-52.0); Hemoglobin 14.5 gm/dL (13.5-18.0); Mean Cell Volume 87.5 fl (78-100); Mean Corpuscular Hemoglobin 30.1 pg (27-31); Mean Corpuscular Hgb Conc 34.4 g/dl (32-36); Mean Platelet Volume 10.4 fl (6.0-9.5); Neutrophil # 7.9 K/mm3 (1.3-6.0); Neutrophil % 74.2 % (42-75.0); Platelet Count 282 K/mm3 (150-450); Red Blood Count 4.81 M/mm3 (4.7-6.0); Red Cell Distribution Width 13.5 % (11.5-14.0); White Blood Count 10.6 K/mm3 (4.0-10.5)
[2017-04-30 06:26] LABS: Anion Gap 12.8 mmol/L (6.8-13.8); Calcium * 8.5 mg/dL (7.9-10.9); Carbon Dioxide 27.5 mmol/L (24-32.6); Estimated Creat Clear 75.7; Potassium 3.3 mmol/L (3.4-4.6)
[2017-04-30] MEDS: METOPROLOL SUCCINATE 100 MG TABLET.SA PO SCH (08:44)
[2017-04-30] MEDS: HYDROCHLOROTHIAZIDE 25 MG TABLET PO SCH (08:44)
[2017-04-30] MEDS: amLODIPine BESYLATE 10 MG TABLET PO SCH (08:45)
[2017-04-30] MEDS: PANTOPRAZOLE SODIUM 40 MG in NORMAL SALINE 50 ML IV SCH (16:28)
--- NOTE | 2017-04-30 17:12 | PN ---
Dictated Progress Note - Date and Time Seen: Date: 04/30/17 Time: 17:10 - Progress Note Narrative: Vital Signs - Last Taken Temp 36.6 C 04/30/17 14:53 Pulse 66 04/30/17 16:28 Resp 16 04/30/17 14:53 BP 147/73 04/30/17 16:28 Pulse Ox 94 04/30/17 14:53 Abnormal/Pending Laboratory Last 24 HRS 04/30/17 04/30/17 05:25 05:25 WBC 10.6 H D MPV 10.4 H Immature Gran % (Auto) 0.80 H Immature Gran # (Auto) 0.08 H Lymphocytes % 14.3 L Neutrophils # 7.9 H Potassium 3.3 L Random Glucose 137 H POD #3 exploratory laparotomy with small bowel resection to release SBO VS normal. Pain controlled. Dressing dry. Has been OOB. Voiding good amounts. Less NG output but no bowel activity (+BS) Will encourage OOB, continue NG and IVF's
[2017-04-30] MEDS: SIMVASTATIN 40 MG TABLET PO SCH (20:15)
[2017-05-01] MEDS: hydrALAZINE HCL 25 MG TABLET PO SCH ×3 (01:04→16:22)
[2017-05-01 06:20] LABS: BUN/Creatinine Ratio 12.5 (9.0-21.6); Calcium * 8.5 mg/dL (7.9-10.9); Estimated Creat Clear 78.2; Potassium 3.1 mmol/L (3.4-4.6)
[2017-05-01 06:25] LABS: Anion Gap 12.5 mmol/L (6.8-13.8); Carbon Dioxide 28.6 mmol/L (24-32.6)
--- NOTE | 2017-05-01 08:27 | PN ---
Subjective - Date and Time Seen Date: 05/01/17 Time: 08:24 Subjective Narrative: Patient is afebrile. Has has BM. started on clear liquids and tolerated it well. Objective - Review of Systems Generalized/Overall Review: Denies: Weakness, Chills, Fever Respiratory: Denies: Cough, Shortness of Breath Cardiac: Denies: Chest Pain, Palpitations Abdominal: Denies: Nausea, Vomiting Genitourinary Symptoms: Denies: Urgency, Frequency - Vitals Vitals: Last Vital Signs Temp 37 C 05/01/17 06:00 Pulse 60 05/01/17 06:00 Resp 18 05/01/17 06:00 BP 154/69 05/01/17 06:00 Pulse Ox 94 05/01/17 06:00 - Abnormal Lab Findings Abnormal Lab Findings: Abnormal Lab Results 05/01/17 Range/Units 06:06 Potassium 3.1 L (3.4-4.6) mmol/L Random Glucose 127 H (70-110) mg/dL - Exam Constitutional: Present: Alert, Oriented x3, Cooperative ENT Exam: Present: hearing grossly normal Neck: Present: supple Cardiovascular/Chest: Present: regular rate, rhythm, no JVD, no murmur Abdomen: Present: nontender, firm, hypoactive Extremity: Present: no pedal edema, no calf tenderness Cauti Physician Documentation - Urinary Catheter Management Urethral (Hauser) Date of Insertion: 04/27/17 Date of Removal: 04/28/17 Time of Removal: 10:25 Assessment/Plan - Problems/Diagnosis (1) SBO (small bowel obstruction) Problem: Acute Narrative: s/p explor lap and small bowel resection. on clear liquids. (2) Leukocytosis Problem: Acute Narrative: improving likely reactive. down to 10.3. (3) HTN (hypertension) Problem: Chronic Qualifiers: Hypertension type: essential hypertension Qualified Code(s): I10 - Essential (primary) hypertension
[2017-05-01] MEDS ORDERED: POTASSIUM CHLORIDE IN WATER 100 ML IV SCH (08:45)
[2017-05-01] MEDS: amLODIPine BESYLATE 10 MG TABLET PO SCH (09:01)
[2017-05-01] MEDS: METOPROLOL SUCCINATE 100 MG TABLET.SA PO SCH (09:01)
[2017-05-01] MEDS: HYDROCHLOROTHIAZIDE 25 MG TABLET PO SCH (09:02)
[2017-05-01] MEDS: RINGER'S SOLUTION,LACTATED 1,000 ML IV PRN (13:50)
[2017-05-01] MEDS: ACETAMINOPHEN 325 MG TABLET PO PRN (15:01)
[2017-05-01] MEDS: PANTOPRAZOLE SODIUM 40 MG in NORMAL SALINE 50 ML IV SCH (16:23)
--- NOTE | 2017-05-01 17:20 | PN ---
Dictated Progress Note - Date and Time Seen: Date: 05/01/17 Time: 17:18 - Progress Note Narrative: Vital Signs - Last Taken Temp 36.8 C 05/01/17 11:13 Pulse 72 05/01/17 16:22 Resp 18 05/01/17 11:13 BP 148/72 05/01/17 16:22 Pulse Ox 96 05/01/17 11:13 Abnormal/Pending Laboratory Last 24 HRS 05/01/17 06:06 Potassium 3.1 L Random Glucose 127 H POD#4 VS normal. Pain controlled. Dressing dry. OOB. 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
[2017-05-01] MEDS: SIMVASTATIN 40 MG TABLET PO SCH (20:27)
[2017-05-02] MEDS: hydrALAZINE HCL 25 MG TABLET PO SCH ×2 (00:28→08:46)
[2017-05-02] MEDS: ACETAMINOPHEN 325 MG TABLET PO PRN ×2 (01:18→14:31)
[2017-05-02] MEDS: HYDROCHLOROTHIAZIDE 25 MG TABLET PO SCH (08:47)
[2017-05-02] MEDS: amLODIPine BESYLATE 10 MG TABLET PO SCH (08:47)
[2017-05-02] MEDS: METOPROLOL SUCCINATE 100 MG TABLET.SA PO SCH (08:49)
--- NOTE | 2017-05-02 11:31 | PN ---
Progesemiliana Note - Interim Narrative: 05/02/17 11:30 Patient tolerated full diet . Will await surgical decision if he is OK for D/C today.
--- NOTE | 2017-05-02 12:38 | DS ---
(1) SBO (small bowel obstruction) Problem: Resolved Procedures Performed: see notes below - exploratory laparotomy with small bowel resection Results and Findings: He presented with small bowel obstruction which did not resolve with trial of NG decompression and IVF's. Taken to the OR on 04/27/17 for exploration with findings of discrete area of small bowel abnormality. This was resected with relief of the obstruction. No other obvious pathology was encountered. He received pre-op Ancef and chlorhexidine wipe prep and VTE prophylaxis was accomplished with SCD's and early ambulation. He had a worthy catheter (removed timely) and an epidural was used for pain control. He was continued on IVF's with NG tube until return of bowel function. His pain was controlled, he ambulated independently and his incision appeared to be healing well. Pathology did reveal a tumor at the sit of obstruction and special stains to obtain diagnosis have been submitted. By POD #5 his VS were normal and he was tolerating a regular diet. Home, instructions given. Phone #'s for questions or concerns. Resume usual medications. Tylenol for pain. Will arrange follow-up appointment in approximately one week. Discharge Disposition: Home self care Disposition: Home self-care Condition: Good Discharge Activity: Activity as tolerated, No Lifting Discharge Diet: General/regular food Problem Oriented Discharge Instructions to Patient/Family: Exploratory Laparotomy, Adult Complete Home Medications List: Complete Home Medication List: Amlodipine Besylate 10 mg PO DAILY 07/13/13 Hydrochlorothiazide 25 mg PO DAILY 07/13/13 Simvastatin [Zocor] 40 mg PO HS 07/13/13 hydrALAZINE HCL [Apresoline] 25 mg PO TID 07/13/13 Metoprolol Succinate 100 mg PO DAILY 04/26/17
[2017-05-03 09:14] VITALS: BP 124/66
== END 2017-05-02 14:15 | disposition home or self-care (01) | DRG 331 ==
LOC: ER 11:07 → MS 17:02
PROVIDERS: ADMIT Internal Medicine; ATTEND Internal Medicine
PROC: 0DB80ZZ Excision of Small Intestine, Open Approach (ICD-10-PCS; principal; 2017-04-27)
PROC: 0WBF0ZZ Excision of Abdominal Wall, Open Approach (ICD-10-PCS; 2017-04-27)
DX: K56.50 Intestinal adhesions [bands], unspecified as to partial versus complete obstruction (principal); D17.79 Benign lipomatous neoplasm of other sites; D72.829 Elevated white blood cell count, unspecified; I10 Essential (primary) hypertension
CPT/HCPCS: 36415; 44120; 49250; 71045; 74018; 74019; 74177; 80048; 80053; 81001; 82150; 83690; 85025; 88304; 88309; 88341; 88342; 93005; 96374; 96375; 99285; J2405

== ENCOUNTER 2019-04-05 16:13 | Inpatient (IN) ==
[2019-04-05 16:34] LABS: Hematocrit 50.8 % (42.0-52.0); Hemoglobin 17.3 gm/dL (13.5-18.0); Mean Cell Volume 89.1 fl (78-100); Mean Corpuscular Hemoglobin 30.4 pg (27-31); Mean Corpuscular Hgb Conc 34.1 g/dl (32-36); Mean Platelet Volume 9.4 fl (8-11.3); Neutrophil # 16.4 K/mm3 (1.3-6.0); Neutrophil % 82.1 % (42-75.0); Platelet Count 348 K/mm3 (150-450); Red Cell Distribution Width 13.8 % (11.5-14.0)
--- NOTE | 2019-04-05 16:35 | ERNOTE ---
Abdominal HPI - General Chief Complaint: Abdominal Pain Time Seen by Provider: 04/05/19 16:22 Source: patient Exam Limitations: no limitations - Immun/Allergies/Home Medications Immunizatons: IMMUNIZATION HX Immunizations Up to Date Yes History of Influenza Vaccine Yes Hx Pneumococcal Vaccination Yes Allergies/Adverse Reactions: Allergies No Known Allergies Allergy (Verified 04/05/19 16:19) Home Medications: HOME MEDICATIONS aspirin 81 mg chewable tablet 81 mg PO DAILY 11/15/17 [Last Taken 06/09/18] metformin 1,000 mg tablet 1,000 mg PO BID #180 tab 05/27/18 [Last Taken 06/09/18] amlodipine 10 mg tablet 10 mg PO DAILY #90 tab 12/04/18 [Last Taken Unknown] hydrochlorothiazide 25 mg tablet 25 mg PO DAILY #90 tab 12/04/18 [Last Taken Unknown] metoprolol succinate 100 mg tablet,extended release 24 hr 100 mg PO DAILY #90 tab 12/04/18 [Last Taken Unknown] rosuvastatin 40 mg tablet 40 mg PO DAILY #90 tab 12/04/18 [Last Taken Unknown] hydralazine 25 mg tablet 25 mg PO TID #90 tab 03/12/19 [Last Taken Unknown] - History of Present Illness Narrative: Patient presents with mid abdominal pain that started last night. He states is very similar to when he had a bowel obstruction several years ago. He rates the pain is at least moderate to severe in severity. Timing: constant Quality: moderate, severe Activities at Onset: none Associated Symptoms: Present: denies symptoms Prior Abdominal Problems: Present: similar symptoms Prior Treatment: Present: recently seen Review of Systems - Review of Systems Constitutional: Present: See HPI EYE: Present: no symptoms reported ENT: Present: no symptoms reported Respiratory: Present: no symptoms reported Cardiology: Present: no symptoms reported Gastrointestinal/Abdominal: Present: See HPI Genitourinary: Present: no symptoms reported Musculoskeletal: Present: no symptoms reported Skin: Present: no symptoms reported Neurological: Present: no symptoms reported Endocrine: Present: no symptoms reported Hematologic/Lymphatic: Present: no symptoms reported Psych: Present: no symptoms reported Medical History (Last Reviewed 04/05/19 @ 16:19 by Annabel Villasenor RN) Actinic keratosis Onset Date: 10/22/09 HTN (hypertension) Onset Date: Unknown Hypercholesterolemia Onset Date: 04/22/08 Impaired fasting glucose Onset Date: Unknown Osteoarthritis Onset Date: Unknown Hx of small bowel obstruction Onset Date: 04/26/17 [place] - Exp lap with small bowel resection and excision of umbilicus. Prostate cancer Onset Date: Unknown Surgical History: Surgical History (Last Reviewed 04/05/19 @ 16:19 by Annabel Villasenor, RN) H/O prostate biopsy Onset Date: 12/29/09 [place]-Transrectal ultrasound-guided biopsy-adenocarcinoma Hx of colonoscopy Onset Date: 06/10/18 08/05/12 Dr French, [facility]-3mm tubular adenoma cecum, 7 mm adenomatous/hyperplastic polyp at 25 cm. 06/10/18 [place]-diverticulosis. Recheck 5-10yrs. Hx of excision of umbilicus Onset Date: 04/27/17 [facility] Hx of exploratory laparotomy Onset Date: 04/27/17 [place]-w/sm bowel resection. 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 Social History: (Last Reviewed 04/05/19 @ 16:19 by Annabel Villasenor, RN) Social History: Marital status: household members: spouse number of children: 3 current occupational status: retired current occupation: Maintenance Highest education level completed: some college, no degree Service: No Tobacco: Smoking Status: Never smoker Alcohol: alcohol intake: current details: Some day Substance Use: substance use type: does not use Dietary Habits: caffeine: Yes caffeine comment: Current every day Personal Safety: victim of physical abuse: No victim of emotional abuse: No Physical Exam - Physical Exam General Appearance: Present: wd/wn, alert, moderate distress Head Exam: Present: normal inspection, no evidence of injury Eye Exam: Normal inspection: bilateral, PERRL: bilateral Ears, Nose, Throat: Present: normal ENT inspection, H, normal pharynx Neck: Present: normal inspection, nontender Respiratory: Present: no respiratory distress, normal breath sounds, no accessory muscle use, chest nontender, lungs clear Cardiovascular/Chest: Present: regular rate, rhythm, no murmur, normal peripheral pulses Gastrointestinal/Abdominal: Present: nondistended, soft, no organomegaly, tenderness - Generalized, abnormal bowel sounds - Hypoactive Rectal Exam: Present: deferred Back Exam: Present: normal inspection, normal range of motion Extremity Exam: Present: normal inspection, non-tender, no edema, normal range of motion Neurological Exam: Present: alert, oriented, normal mood/affect Skin Exam: Present: normal color, warm/dry Lymphatic Exam: Present: no adenopathy Progress - Results and Orders Patient's Lab Results:: I have reviewed the patient's lab results. - Vital Signs Patient's Vital Signs:: I have reviewed the patient's vital signs. Vital Signs: Vital Signs 04/05/19 16:16 Temperature 36.5 C Pulse Rate 65 Respiratory Rate 15 Blood Pressure 158/75 H O2 Sat by Pulse Oximetry 97 - X-Ray X-Ray #1 X-Ray: abdomen Interpretation: Reviewed by me - Progress/Reassessment Chief Complaint: Abdominal Pain Plan - Plan Plan: NG has been placed and surgical consult has been sought with Dr. Romo. Patient will be admitted and held n.p.o. for now. Departure Clinical Impression: SBO (small bowel obstruction) - Departure Disposition: Still a patient Condition: Fair Referrals: Jaymie Kumari MD [Primary Care Provider] -
[2019-04-05 16:48] LABS: Albumin * 3.9 gm/dl (3.4-5.0); Anion Gap 13.9 mmol/L (6.8-13.8); BUN/Creatinine Ratio 16.2 (9.0-21.6); Bilirubin, Total 0.6 mg/dL (0.0-1.1); Ca. Corrected For Albumin 9.3 mg/dL (8.4-10.2); Calcium * 9.5 mg/dL (7.9-10.9); Carbon Dioxide 30.9 mmol/L (24-32.6); Potassium 3.8 mmol/L (3.4-4.6); Total Protein 7.8 gm/dL (6.2-8.2)
[2019-04-05] MEDS ORDERED: DIATRIZOATE MEGLUMINE, SODIUM 30 ML BTL PO ONE (17:05)
[2019-04-05] MEDS ORDERED: NORMAL SALINE 1,000 ML IV ONE (17:14)
[2019-04-05 17:42] LABS: Urine Appearance Clear (CLEAR); Urine Bilirubin Negative (NEGATIVE); Urine Blood Negative /ul (NEGATIVE); Urine Color Yellow; Urine Ketone Negative (NEGATIVE); Urine Nitrite Negative (NEGATIVE); Urine Protein 30 mg/dL (NEGATIVE); Urine Urobilinogen Normal (NORMAL); Urine pH 5.5 pH (5.0-7.0)
[2019-04-05 17:43] LABS: Urine Bacteria None Seen; Urine RBC None Seen /hpf (0-5); Urine WBC 0-5 /hpf (0-5)
[2019-04-05] MEDS ORDERED: ONDANSETRON HCL/PF 2 MG/ML VIAL IV ONE (18:19)
[2019-04-05] MEDS ORDERED: MORPHINE SULFATE 4 MG/ML SYRG IV ONE (18:19)
[2019-04-05] MEDS ORDERED: PHENOL 180 SPRAY BTL MM PRN (21:19)
[2019-04-05] MEDS: NORMAL SALINE 1,000 ML IV PRN (21:51)
[2019-04-05] MEDS: hydrALAZINE HCL 20 MG/ML VIAL IV SCH (22:12)
[2019-04-05] MEDS ORDERED: ONDANSETRON HCL/PF 2 MG/ML VIAL IV PRN (22:14)
--- NOTE | 2019-04-05 22:15 | HP ---
Chief Complaint - Chief Complaint Date of Service: 04/05/19 Time of Service: 22:15 Chief Complaint: Abdominal Pain History of Present Illness: Jeronimo is a 68 yo male with prior history of bowel obstruction requiring surgical intervention in 2018. Since that time he has done well. He reports a daily soft bowel movement and he reports having one of those yesterday. Following dinner he suddenly began having abdominal pain and it has continued leading him to go to the ER. He reports not eating anything out of the ordinary. Since the bowel movement yesterday morning he does not recall passing gas since that time. He has not vomited. No fever or chills. In the ER CT imaging showed small bowel obstruction located at the anastamosis site of his prior surgery. Medical History (Last Reviewed 04/05/19 @ 20:23 by Aviva Mcgraw RN) Actinic keratosis Onset Date: 10/22/09 HTN (hypertension) Onset Date: Unknown Hypercholesterolemia Onset Date: 04/22/08 Impaired fasting glucose Onset Date: Unknown Osteoarthritis Onset Date: Unknown Hx of small bowel obstruction Onset Date: 04/26/17 [facility] - Exp lap with small bowel resection and excision of umbilicus. Prostate cancer Onset Date: Unknown Surgical History: Surgical History (Last Reviewed 04/05/19 @ 20:24 by Aviva Mcgraw RN) H/O prostate biopsy Onset Date: 12/29/09 [place]-Transrectal ultrasound-guided biopsy-adenocarcinoma Hx of colonoscopy Onset Date: 06/10/18 08/05/12 Dr French, [facility]-3mm tubular adenoma cecum, 7 mm adenomatous/hyperplastic polyp at 25 cm. 06/10/18 [facility]-diverticulosis. Recheck 5-10yrs. Hx of excision of umbilicus Onset Date: 04/27/17 [facility] Hx of exploratory laparotomy Onset Date: 04/27/17 [facility]-w/sm bowel resection. 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 Social History: (Last Reviewed 04/05/19 @ 20:24 by Aviva Mcgraw RN) Social History: Marital status: household members: spouse number of children: 3 current occupational status: retired current occupation: Maintenance Highest education level completed: some college, no degree Service: No Tobacco: Smoking Status: Never smoker Alcohol: alcohol intake: current details: Some day Substance Use: substance use type: does not use Dietary Habits: caffeine: Yes caffeine comment: Current every day Personal Safety: victim of physical abuse: No victim of emotional abuse: No Review Of Systems (GEN) - Review of Systems Generalized/Overall Review: Absent: Weakness, Chills, Fever Respiratory: Absent: Cough, Shortness of Breath Cardiac: Absent: Chest Pain, Edema Abdominal: Present: Nausea, Abdominal Pain. Absent: Vomiting, Diarrhea, Bright blood from rectum Genitourinary: Present: No Symptoms Reported Musculoskeletal: Present: No Symptoms Reported Neurological: Present: No Symptoms Reported Skin: Present: No Symptoms Reported Immunizations: IMMUNIZATION HX Immunizations Up to Date Yes History of Influenza Vaccine Yes Hx Pneumococcal Vaccination Yes Allergies/Adverse Reactions: Allergies Allergy/AdvReac Type Severity Reaction Status Date / Time No Known Allergies Allergy Verified 04/05/19 20:24 Home Medications: HOME MEDICATIONS aspirin 81 mg chewable tablet 81 mg PO DAILY 11/15/17 [Last Taken 06/09/18] metformin 1,000 mg tablet 1,000 mg PO BID #180 tab 05/27/18 [Last Taken 06/09/18] amlodipine 10 mg tablet 10 mg PO DAILY #90 tab 12/04/18 [Last Taken Unknown] hydrochlorothiazide 25 mg tablet 25 mg PO DAILY #90 tab 12/04/18 [Last Taken Unknown] metoprolol succinate 100 mg tablet,extended release 24 hr 100 mg PO DAILY #90 tab 12/04/18 [Last Taken Unknown] rosuvastatin 40 mg tablet 40 mg PO DAILY #90 tab 12/04/18 [Last Taken Unknown] hydralazine 25 mg tablet 25 mg PO TID #90 tab 03/12/19 [Last Taken Unknown] Exam - Exam Vital Signs: Vital Signs - Last Taken Temp 36.6 C 04/05/19 22:08 Pulse 58 L 04/05/19 22:08 Resp 18 04/05/19 22:08 BP 158/68 H 04/05/19 22:08 Pulse Ox 92 L 04/05/19 22:08 Constitutional: Present: Alert, Oriented x3, Cooperative ENT Exam: Present: hearing grossly normal Eye Exam: bilateral eye: normal inspection Respiratory: Present: lungs clear, normal breath sounds, no respiratory distress Cardiovascular/Chest: Present: regular rate, rhythm, no murmur Abdomen: Present: Normal bowel sounds, soft, no rebound tenderness, no hepatospenomegaly, no masses, tender - diffuse tenderness Skin Exam: Present: normal color, warm/dry, no cyanosis Neurologic: Present: alert, normal mood/affect, oriented x 3 Appearance: Present: appropriate appearance, appropriate insight Eye contact: Present: cooperative, good eye contact, normal speech Diagnostic Studies: Abnormal Lab Results 04/05/19 04/05/19 04/05/19 Range/Units 16:27 16:27 17:29 WBC 20.0 H (4.0-10.5) K/mm3 Immature Gran % (Auto) 0.50 H (0.001-0.429) % Immature Gran # (Auto) 0.10 H (0.000-0.0310) K/mm3 Neutrophils % 82.1 H (42-75.0) % Lymphocytes % 10.5 L (20-51) % Neutrophils # 16.4 H (1.3-6.0) K/mm3 Monocytes # 1.3 H (0.0-1.0) k/mm3 Anion Gap 13.9 H (6.8-13.8) mmol/L Random Glucose 135 H (70-110) mg/dL Urine Protein 30 H (NEGATIVE) mg/dL Laboratory Results WBC 20.0 K/mm3 (4.0-10.5) H 04/05/19 16:27 RBC 5.70 M/mm3 (4.7-6.0) 04/05/19 16:27 Hgb 17.3 gm/dL (13.5-18.0) 04/05/19 16:27 Hct 50.8 % (42.0-52.0) 04/05/19 16:27 MCV 89.1 fl (78-100) 04/05/19 16:27 MCH 30.4 pg (27-31) 04/05/19 16:27 MCHC 34.1 g/dl (32-36) 04/05/19 16: RDW 13.8 % (11.5-14.0) 04/05/19 16: Plt Count 348 K/mm3 (150-450) 04/05/19 16: MPV 9.4 fl (8-11.3) 04/05/19 16:27 Immature Gran % (Auto) 0.50 % (0.001-0.429) H 04/05/19 16: Immature Gran # (Auto) 0.10 K/mm3 (0.000-0.0310) H 04/05/19 16:27 Neutrophils % 82.1 % (42-75.0) H 04/05/19 16: Lymphocytes % 10.5 % (20-51) L 04/05/19 16: Monocytes % 6.2 % (0.0-9) 04/05/19 16: Eosinophils % 0.4 % (0.0-3.0) 04/05/19 16: Basophils % 0.3 % (0.0-1.0) 04/05/19 16: Nucleated RBC % 0.0 k/mm3 (0-1) 04/05/19 16: Neutrophils # 16.4 K/mm3 (1.3-6.0) H 04/05/19 16: Lymphocytes # 2.10 k/mm3 (1.5-3.5) 04/05/19 16: Monocytes # 1.3 k/mm3 (0.0-1.0) H 04/05/19 16: Eosinophils # 0.1 k/mm3 (0.0-0.7) 04/05/19 16: Absolute Basophils 0.1 k/mm3 (0.0-0.1) 04/05/19 16: Sodium 138 mmol/L (132-142) 04/05/19 16: Plasma Sodium 139 mmol/L (130-142) 04/05/19 16: Potassium 3.8 mmol/L (3.4-4.6) 04/05/19 16:27 Chloride 97 mmol/L (97-106) 04/05/19 16: Carbon Dioxide 30.9 mmol/L (24-32.6) 04/05/19 16:27 Anion Gap 13.9 mmol/L (6.8-13.8) H 04/05/19 16:27 BUN 17 mg/dL (6-23) 04/05/19 16:27 Creatinine 1.05 mg/dL (0.4-1.4) 04/05/19 16:27 Est GFR (Non-Af Amer) 75 mL/min (60-130) 04/05/19 16:27 BUN/Creatinine Ratio 16.2 (9.0-21.6) 04/05/19 16:27 Random Glucose 135 mg/dL (70-110) H 04/05/19 16:27 Lactic Acid, Venous 1.7 mmol/L (0.4-2.0) 04/05/19 16:27 Calcium 9.5 mg/dL (7.9-10.9) 04/05/19 16:27 Calcium Adj for Albumin 9.3 mg/dL (8.4-10.2) 04/05/19 16:27 Magnesium 1.8 mg/dL (1.2-2.8) 04/05/19 16:27 Total Bilirubin 0.6 mg/dL (0.0-1.1) 04/05/19 16:27 AST 18 U/L (0-48) 04/05/19 16:27 ALT 27 U/L (19-67) 04/05/19 16:27 Alkaline Phosphatase 55 U/L (50-170) 04/05/19 16:27 Total Protein 7.8 gm/dL (6.2-8.2) 04/05/19 16:27 Albumin 3.9 gm/dl (3.4-5.0) 04/05/19 16:27 Lipase 209 U/L (73-393) 04/05/19 16:27 Urine Color Yellow 04/05/19 17:29 Urine Appearance Clear (CLEAR) 04/05/19 17:29 Urine pH 5.5 pH (5.0-7.0) 04/05/19 17:29 Ur Specific [place] 1.030 SP.GR. (1.005-1.030) 04/05/19 17:29 Urine Protein 30 mg/dL (NEGATIVE) H 04/05/19 17:29 Urine Glucose (UA) Negative mg/dL (NEGATIVE) 04/05/19 17:29 Urine Ketones Negative mg/dL (NEGATIVE) 04/05/19 17:29 Urine Blood Negative /ul (NEGATIVE) 04/05/19 17: Urine Nitrate Negative (NEGATIVE) 04/05/19 17: Urine Bilirubin Negative mg/dl (NEGATIVE) 04/05/19 17:29 Prot Sulfosalicylic Acd 1+ mg/dL (0) 04/05/19 17:29 Urine Urobilinogen Normal EU/dl (NORMAL) 04/05/19 17: Ur Leukocyte Esterase Negative /ul (NEGATIVE) 04/05/19 17:29 Urine RBC None seen /hpf (0-5) 04/05/19 17: Urine WBC 0-5 /hpf (0-5) 04/05/19 17: Ur Epithelial Cells 0-5 /hpf (0-5) 04/05/19 17:29 Urine Bacteria None seen (NONE) 04/05/19 17: Urine Culture Comments No culture indicated 04/05/19 17:29 Assessment/Plan - Narrative Narrative: Jeronimo is a 68 yo male with a history of a small bowel obstruction and prior need for surgical intervention in 2018. He is early in his course and will hopefully resolve with conservative management. Will admit to inpatient status, make NPO, and have NG tube placed on suction. Will monitor with serial xrays. He is not having severe pain and is tolerating the NG tube. Will consult surgery if he fails conservative management. - Assessment/Plan (1) SBO (small bowel obstruction) Problem: Resolved (2) Type II diabetes mellitus Problem: Chronic Qualifiers: Diabetes mellitus detention insulin use: without detention use Diabetes mellitus complication status: without complication Qualified Code(s): E11.9 - Type 2 diabetes mellitus without complications
[2019-04-05] MEDS: KETOROLAC TROMETHAMINE 30 MG/ML VIAL IV PRN (22:33)
[2019-04-06] MEDS: INSULIN LISPRO 100 UNITS/ML VIAL SC SCH ×4 (01:47→17:47)
[2019-04-06] MEDS: KETOROLAC TROMETHAMINE 30 MG/ML VIAL IV PRN ×2 (05:22→11:49)
[2019-04-06] MEDS: hydrALAZINE HCL 20 MG/ML VIAL IV SCH ×3 (05:22→22:08)
[2019-04-06] MEDS: NORMAL SALINE 1,000 ML IV PRN (11:47)
--- NOTE | 2019-04-06 23:55 | PN ---
Subjective - Date and Time Seen Date: 04/06/19 Time: 10:00 Subjective Narrative: Jeronimo reports still a little abdominal pain. Toradol helps. He has not passed stool or gas overnight. No fever, chills, nausea. His NG tube continues to drain although it has decreased in aspirate this morning. Objective - Vitals Vitals: Last Vital Signs Temp 37.1 C 04/06/19 17:57 Pulse 75 04/06/19 22:08 Resp 14 04/06/19 17:57 BP 135/57 04/06/19 22:08 Pulse Ox 90 L 04/06/19 17:57 - Exam Constitutional: Present: Alert, Oriented x3, Cooperative ENT Exam: Present: hearing grossly normal Respiratory: Present: lungs clear, normal breath sounds Cardiovascular/Chest: Present: regular rate, rhythm, no murmur Abdomen: Present: Normal bowel sounds, soft, nondistended, tender - mild diffuse tenderness Skin Exam: Present: normal color, warm/dry, no cyanosis Assessment/Plan Plan Narrative: Continue conservative approach as he is tolerating NG tube and has minimal abdominal pain. He has not passed stool or gas for 24 hours. Will monitor today. His last small bowel obstruction required surgical management to resolve. If not improved by tomorrow, may need to consult surgery. If he has a bowel movement today will plan to clamp NG and advance diet to clears tomorrow. - Problems/Diagnosis (1) SBO (small bowel obstruction) Problem: Acute
[2019-04-07] MEDS: NORMAL SALINE 1,000 ML IV PRN ×2 (00:53→14:32)
[2019-04-07] MEDS: INSULIN LISPRO 100 UNITS/ML VIAL SC SCH ×4 (05:27→17:33)
[2019-04-07] MEDS: hydrALAZINE HCL 20 MG/ML VIAL IV SCH ×2 (05:29→14:33)
[2019-04-07] MEDS ORDERED: ENOXAPARIN SODIUM 40 MG/0.4 ML SYRG SC SCH (08:00)
[2019-04-07 09:18] LABS: Hematocrit 45.3 % (42.0-52.0); Hemoglobin 15.1 gm/dL (13.5-18.0); Mean Cell Volume 90.2 fl (78-100); Mean Corpuscular Hemoglobin 30.1 pg (27-31); Mean Corpuscular Hgb Conc 33.3 g/dl (32-36); Mean Platelet Volume 9.5 fl (8-11.3); Neutrophil # 6.6 K/mm3 (1.3-6.0); Neutrophil % 70.6 % (42-75.0); Platelet Count 285 K/mm3 (150-450); Red Blood Count 5.02 M/mm3 (4.7-6.0); Red Cell Distribution Width 14.3 % (11.5-14.0); White Blood Count 9.3 K/mm3 (4.0-10.5)
[2019-04-07 09:30] LABS: BUN/Creatinine Ratio 21.7 (9.0-21.6); Calcium * 8.6 mg/dL (7.9-10.9); Carbon Dioxide 30.4 mmol/L (24-32.6); Estimated Creat Clear 63.2; Potassium 3.4 mmol/L (3.4-4.6)
--- NOTE | 2019-04-07 11:32 | PN ---
Subjective - Date and Time Seen Date: 04/07/19 Time: 11:29 Subjective Narrative: patient says he does not have abdominal pain todya. had BM last night and early this morning. Objective - Review of Systems Generalized/Overall Review: Denies: Weakness, Chills, Fever EENTM: Denies: Blurred Vision Respiratory: Denies: Cough, Shortness of Breath, Wheezing Cardiac: Denies: Chest Pain, Edema, Palpitations Abdominal: Denies: Nausea, Vomiting, Hematemesis, Abdominal Pain, Melena Genitourinary Symptoms: Denies: Urgency, Frequency Neurological: Denies: Headache Skin: Denies: Lesions, Rash Endocrine: Denies: Intolerance to Cold, Intolerance to Heat Misc: All systems neg except as marked - Vitals Vitals: Last Vital Signs Temp 37.1 C 04/07/19 10:13 Pulse 84 04/07/19 10:13 Resp 16 04/07/19 10:13 BP 139/65 04/07/19 10:13 Pulse Ox 93 04/07/19 10:13 - Abnormal Lab Findings Abnormal Lab Findings: Abnormal Lab Results 04/07/19 04/07/19 Range/Units 09:14 09:14 RDW 14.3 H (11.5-14.0) % Lymphocytes % 18.9 L (20-51) % Neutrophils # 6.6 H (1.3-6.0) K/mm3 Sodium 143 H (132-142) mmol/L Plasma Sodium 144 H (130-142) mmol/L BUN/Creatinine Ratio 21.7 H (9.0-21.6) Random Glucose 134 H (70-110) mg/dL - Exam Constitutional: Present: Alert, Oriented x3, Cooperative ENT Exam: Present: hearing grossly normal Respiratory: Present: normal breath sounds, No rales, No wheezing Cardiovascular/Chest: Present: regular rate, rhythm, no JVD, no murmur Abdomen: Present: Normal bowel sounds, soft, nontender, nondistended Extremity: Present: no pedal edema, calf tenderness Assessment/Plan Plan Narrative: Jeronimo Adame is a 68-year-old white male who was admitted on 09/04/2019 for nausea, vomiting, abdominal pain and was found to have partial small bowel obstruction on CT scan. He was placed n.p.o., IV fluids, pain and antinausea vomiting medications, and NG tube. He had bowel movement last night and early this morning. He denies any abdominal pain now, nausea, vomiting. We will get a flat and upright up abdominal x-ray for follow-up and do a CBC, BMP. We will advance his diet to clear liquids. Will likely pull out his NGT tube toda pending AXR. Pending results possible discharge tonight as we progress our diet. I will also try to talk to Dr. Rubio about his case. Addendum: I put Dr. Rubio on consult as his obstruction is likely at the anastomotic site and although there is some interval improvement he still has dilated bowel loops. We will likely defer his discharge today as we will need to progress his diet slowly. He also has carcinoid tumor although he denies any wheezing, flushing, diarrhea, signs and symptoms of right heart failure. 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, unspecified portion (4) HTN (hypertension) Problem: Chronic Qualifiers: Hypertension type: essential hypertension Qualified Code(s): I10 - Essential (primary) hypertension (5) Hyperlipidemia Problem: Chronic Qualifiers: Hyperlipidemia type: mixed hyperlipidemia Qualified Code(s): E78.2 - Mixed hyperlipidemia (6) Type II diabetes mellitus Problem: Chronic Qualifiers: Diabetes mellitus rn long term care insulin use: without long-term use Diabetes mellitus complication status: without complication Qualified Code(s): E11.9 - Type 2 diabetes mellitus without complications (7) Leukocytosis Problem: Acute
--- NOTE | 2019-04-07 13:40 | CONS ---
[facility] - General Date of Service: 04/07/19 Source: patient, family, RN/MD, RN notes reviewed, old records Exam Limitations: no limitations - History of Present Illness Initial Comments: He was admitted on 04/05/2019 with a partial small bowel obstruction. Apparently 2 days prior to admission he spent a lot of time in his vehicle and was eating peanuts the entire time. He felt funny afterwards. On 04/05/2019 he had some pizza and drank some water and about 15 minutes later had severe lower abdominal discomfort "like when I had the bowel obstruction before". The pain continued and he presented to the emergency room His initial CT scan showed small bowel obstruction with a transition point in the right lower quadrant at the stapled anastomosis. There is fecal lysed small bowel content at the anastomosis. His surgical history is remarkable for presentation in April 2017 with a small bowel obstruction. On exploration he was found to have a small bowel tumor with narrowing. The area was resected. 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 He reports he is done well since that time with no abdominal pain or problems with his bowels. He does have diverticulosis. He had a colonoscopy last year with the findings of a tubular adenoma. He has had repeat urinary 5 HIAA, the last 1 of which was slightly elevated. His chromogranin A was normal. He has had no symptoms suggestive of metastatic carcinoid tumor Allergies/Adverse Reactions: Allergies No Known Allergies Allergy (Verified 04/05/19 20:24) Home Medications: Home Medications Medication Instructions Recorded Last Taken aspirin 81 mg chewable tablet 81 mg PO DAILY 11/15/17 06/09/18 metformin 1,000 mg tablet 1,000 mg PO BID #180 tab 05/27/18 06/09/18 amlodipine 10 mg tablet 10 mg PO DAILY #90 tab 12/04/18 Unknown hydrochlorothiazide 25 mg tablet 25 mg PO DAILY #90 tab 12/04/18 Unknown metoprolol succinate 100 mg 100 mg PO DAILY #90 tab 12/04/18 Unknown tablet,extended release 24 hr rosuvastatin 40 mg tablet 40 mg PO DAILY #90 tab 12/04/18 Unknown hydralazine 25 mg tablet 25 mg PO TID #90 tab 03/12/19 Unknown Procedures Application of splint (07/13/13) PERCUTAN NEEDLE BIOPSY OF PROSTATE (09/29/10) Medications - Medications Current Medications: Current Medications Enoxaparin Sodium (Lovenox) 40 mg SC Q24H [facility] Stop: 05/07/19 08:01 Last Admin: 04/07/19 09:12 Dose: 40 mg Documented by: Hydralazine HCl (Apresoline) 10 mg IV Q8H [facility] Stop: 05/05/19 22:01 Last Admin: 04/07/19 05:29 Dose: 10 mg Documented by: Sodium Chloride (Sodium Chloride 0.9%) 1,000 mls @ 75 mls/hr IV .[id number] PRN PRN Reason: HYDRATION Stop: 05/05/19 21:19 Last Admin: 04/07/19 00:53 Dose: 75 mls/hr Documented by: Insulin Human Lispro (Humalog) 0 units SC Q6H [facility]; Protocol Stop: 05/06/19 00:01 Last Admin: 04/07/19 05:27 Dose: Not Given Documented by: Review of Systems - Review of Systems Generalized/Overall Review: Present: No Symptoms Reported. Absent: Chills, Fever EENTM: Present: No Symptoms Reported Respiratory: Present: No Symptoms Reported Cardiac: Present: No Symptoms Reported Abdominal: Present: Other - He has had multiple loose bowel movements and passing gas. He now has no abdominal discomfort and feels "back to normal" Genitourinary: Present: No Symptoms Reported Musculoskeletal: Present: No Symptoms Reported Neurological: Present: No Symptoms Reported Skin: Present: No Symptoms Reported Endocrine: Present: No Symptoms Reported Physical Examination - Exam Vital Signs: Vital Signs - Last Taken Temp 37.1 C 04/07/19 10:13 Pulse 84 04/07/19 10:13 Resp 16 04/07/19 10:13 BP 139/65 04/07/19 10:13 Pulse Ox 93 04/07/19 10:13 O2 Oxygen Delivery Method Room Air Constitutional: Present: Alert, Oriented x3, Cooperative, Well developed, Well nourished, No distress ENT Exam: Present: normal ENT inspection Neck: Present: normal inspection Respiratory: Present: no respiratory distress Cardiovascular/Chest: Present: regular rate, rhythm Abdomen: Present: other - His abdomen is protuberant but very soft. There is tympany to percussion but no percussion tenderness. There is no discrete point tenderness and no rebound tenderness is elicited. /Rectal: Present: Exam deferred Extremity: Present: normal range of motion, normal inspection Skin Exam: Present: normal color Neurologic: Present: personal injury specialist II-XII nml as tested, no motor/sensory deficits Appearance: Present: appropriate appearance, appropriate insight, neat, no memory impairment Eye contact: Present: cooperative, good eye contact, normal speech Thoughts: Present: normal thought pattern - Results and Findings: Lab/Microbiology results last 24 hrs: Abnormal/Pending Laboratory Last 24 HRS 04/07/19 04/07/19 09:14 09:14 RDW 14.3 H Lymphocytes % 18.9 L Neutrophils # 6.6 H Sodium 143 H Plasma Sodium 144 H BUN/Creatinine Ratio 21.7 H Random Glucose 134 H The plain abdominal x-rays (3 sets) and his CT scan images were reviewed. There is improvement in the small bowel dilation in the right upper quadrant and contrast through into the colon - Assessments/Findings (1) Partial small bowel obstruction Diagnosis(s): His history and the initial CT scan images are compatible with an impacted peanut bolus at the site of the previous anastomosis. This appears to have resolved as he is no longer having any discomfort, his WBC has returned to normal, and his x-rays have improved, and he has had multiple bowel movements. I reviewed his history with him and his , I harsha diagrams, and reviewed his x-rays and CT images with him as well. He tolerated clear liquids, and if he has no more problems his diet could be advanced for supper. Discussed the case with Dr. Kumari ADDENDUM 6PM: He has tolerated clear and full liquids earlier and most of a regular tray. No abdominal pain and abdomen is soft. Some tympany to percussion, with no percussion tenderness and no point tenderness to even deep palpation. Agree with discharge. Patient and his voice understanding of signs of recurrent obstruction, and will call with questions or concerns and seek attention if problems occur. Problem: Resolved
--- NOTE | 2019-04-07 17:09 | DS ---
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, unspecified portion (4) HTN (hypertension) Problem: Chronic Qualifiers: Hypertension type: essential hypertension Qualified Code(s): I10 - Essential (primary) hypertension (5) Hyperlipidemia Problem: Chronic Qualifiers: Hyperlipidemia type: mixed hyperlipidemia Qualified Code(s): E78.2 - Mixed hyperlipidemia (6) Type II diabetes mellitus Problem: Chronic Qualifiers: Diabetes mellitus termination clerk insulin use: without termination clerk use Diabetes mellitus complication status: without complication Qualified Code(s): E11.9 - Type 2 diabetes mellitus without complications Date of Discharge:: 04/07/19 Hospital Course: Jeronimo Adame is a 68 yo male with prior history of bowel obstruction requiring surgical intervention in 2018, Carcinoid Tumor, Diabetes Mellituus, type 2 who was admitted on 04/05/2019 for N/abdominal pain. Since that time of his surgery he had done well. He reported a daily soft bowel movement and his las BM was yesterday. Following dinner he suddenly began having abdominal pain and it has continued leading him to go to the ER. He reported not eating anything out of the ordinary except for eating lots of peanuts. Since the bowel movement yesterday morning he did not recall passing gas since that time. He has not vomited. No fever or chills. In the ER CT imaging showed small bowel obstruction located at the anastamosis site of his prior surgery. He was placwed on NGT, with low suction, IVF, pain medication and kept NPO. Last night he had his first BM and since then has had several today. Surgical consult was done with Dr. Rubio. He feels the peanuts caused some partial obstruction at the anastomotic site rather adhesion. He was started on clear liquids and progressed to full liquid and then to diabetic consistent diet for supper. He tolerated it well w/o complication . We will discharge him tonight. Follow up with me in 1 week. Procedures Performed: none Results and Findings: Lab Pending Results 04/05/19 16:27: WBC 20.0 H, RBC 5.70, Hgb 17.3, Hct 50.8, MCV 89.1, MCH 30.4, MCHC 34.1, RDW 13.8, Plt Count 348, MPV 9.4, Immature Gran % (Auto) 0.50 H, Immature Gran # (Auto) 0.10 H, Neutrophils % 82.1 H, Lymphocytes % 10.5 L, Monocytes % 6.2, Eosinophils % 0.4, Basophils % 0.3, Nucleated RBC % 0.0, Neutrophils # 16.4 H, Lymphocytes # 2.10, Monocytes # 1.3 H, Eosinophils # 0.1, Absolute Basophils 0.1 04/05/19 16:27: Sodium 138, Plasma Sodium 139, Potassium 3.8, Chloride 97, Carbon Dioxide 30.9, Anion Gap 13.9 H, BUN 17, Creatinine 1.05, Est GFR (Non-Af Amer) 75, BUN/Creatinine Ratio 16.2, Random Glucose 135 H, Calcium 9.5, Calcium Adj for Albumin 9.3, Total Bilirubin 0.6, AST 18, ALT 27, Alkaline Phosphatase 55, Total Protein 7.8, Albumin 3.9 04/05/19 16:27: Lipase 209 04/05/19 16:27: Magnesium 1.8 04/05/19 16:27: Lactic Acid, Venous 1.7 04/05/19 17:29: Urine Color Yellow, Urine Appearance Clear, Urine pH 5.5, Ur Specific [place] 1.030, Urine Protein 30 H, Urine Glucose (UA) Negative, Urine Ketones Negative, Urine Blood Negative, Urine Nitrate Negative, Urine Bilirubin Negative, Prot Sulfosalicylic Acd 1+, Urine Urobilinogen Normal, Ur Leukocyte Esterase Negative, Urine RBC None seen, Urine WBC 0-5, Ur Epithelial Cells 0-5, Urine Bacteria None seen, Urine Culture Comments No culture indicated 04/07/19 09:14: WBC 9.3 D, RBC 5.02, Hgb 15.1, Hct 45.3, MCV 90.2, MCH 30.1, MCHC 33.3, RDW 14.3 H, Plt Count 285, MPV 9.5, Immature Gran % (Auto) 0.20, Immature Gran # (Auto) 0.02, Neutrophils % 70.6, Lymphocytes % 18.9 L, Monocytes % 8.9, Eosinophils % 1.1, Basophils % 0.3, Nucleated RBC % 0.0, Neutrophils # 6.6 H, Lymphocytes # 1.76, Monocytes # 0.8, Eosinophils # 0.1, Absolute Basophils 0.0 04/07/19 09:14: Sodium 143 H, Plasma Sodium 144 H, Potassium 3.4, Chloride 103, Carbon Dioxide 30.4, Anion Gap 13.0, BUN 23, Creatinine 1.06, Est GFR (Non-Af Amer) 74, BUN/Creatinine Ratio 21.7 H, Random Glucose 134 H, Calcium 8.6 Discharge Location: Home Disposition: Home self-care Condition: Stable Discharge Activity: Activity as tolerated Discharge Diet: Consistent carbs Referrals: Jaymie Kumari MD [Primary Care Provider] - One Week Problem Oriented Discharge Instructions to Patient/Family: Small Bowel Obstruction, [id number] Additional Patient Instructions (free text): Follow up with PCP in 1 week. Complete Home Medications List: Complete Home Medication List: aspirin 81 mg chewable tablet 81 mg PO DAILY 11/15/17 metformin 1,000 mg tablet 1,000 mg PO BID #180 tab 05/27/18 amlodipine 10 mg tablet 10 mg PO DAILY #90 tab 12/04/18 hydrochlorothiazide 25 mg tablet 25 mg PO DAILY #90 tab 12/04/18 metoprolol succinate 100 mg tablet,extended release 24 hr 100 mg PO DAILY #90 tab 12/04/18 rosuvastatin 40 mg tablet 40 mg PO DAILY #90 tab 12/04/18 hydralazine 25 mg tablet 25 mg PO TID #90 tab 03/12/19
[2019-04-07 19:54] VITALS: BP 158/72
== END 2019-04-07 19:46 | disposition home or self-care (01) | DRG 390 ==
LOC: ER 16:13 → MS 19:37
PROVIDERS: ADMIT Family Medicine; ATTEND Internal Medicine
CPT/HCPCS: 36415; 71010; 71045; 74019; 74020; 74177; 80048; 80053; 81001; 83605; 83690; 83735; 85025; 96361; 96374; 96375; 99284; 99285; J2405; Q9963; Q9967